=== PATIENT | male | born 1935 ===

== ENCOUNTER 2016-11-24 06:49 | Emergency (ER) | payer MEDICARE, BC ==
[2016-07-02 11:16] VITALS: BMI 23.2
[2016-11-24 10:14] LABS: GRAN # 4.33 (1.4-6.5); GRAN % 73.9 % (50.0-68.0); HEMOGLOBIN 12.7 gm/dL (14.0-18.0); LYMPH # 1.1 (1.2-3.4); LYMPH % 19.3 % (22.0-35.0); MEAN CORPUSCULAR HEMOGLOBIN 33.9 pg (25.0-35.0); MEAN CORPUSCULAR HGB CONC 35.3 g/dl (31.0-37.0); MEAN PLATELET VOLUME 10.7 fl (7.0-11.0); MONO # 0.4 (0.1-0.6); MONO % 6.8 % (1.0-6.0); PLATELET COUNT 159 10^3/uL (120.0-450.0); RBC 3.75 10^6/uL (3.5-6.1); RED CELL DISTRIBUTION WIDTH 13.8 % (11.5-14.5); WHITE BLOOD COUNT 5.9 10^3/ul (4.5-11.0)
[2016-11-24 10:18] LABS: VENOUS BLOOD GAS BASE EXCESS -0.7 mmol/L (0.0-2.0); VENOUS BLOOD GAS PO2 109 mm/Hg (30-55); VENOUS BLOOD PH 7.43 (7.32-7.43)
[2016-11-24 10:22] LABS: BLOOD UREA NITROGEN 23 mg/dL (7-21); GFR AFRICAN-AMERICAN > 60; GFR NON-AFRICAN AMERICAN > 60
[2016-11-24 10:23] LABS: ALB/GLOB RATIO 1.1 (1.1-1.8); ALBUMIN 4.4 g/dL (3.0-4.8); AST/SGOT 21 U/L (15-59)
[2016-11-24 10:24] LABS: ALT/SGPT 19 U/L (7-56)
--- NOTE | 2016-11-24 16:10 | CT ---
PROCEDURE: CT Abdomen and Pelvis without intravenous contrast HISTORY: CONSTIPATION - R/O OBSTRUCTION COMPARISON: None. TECHNIQUE: Technique. Contrast Dose: None Radiation dose: Total exam DLP = 404 mGy-cm. This CT exam was performed using one or more of the following dose reduction techniques: Automated exposure control, adjustment of the mA and/or kV according to patient size, and/or use of iterative reconstruction technique. FINDINGS: LOWER THORAX: Unrema peripheral pulmonary fibrosis remains mild. No pleural or pericardial effusion. Small hiatal hernia noted. LIVER: There were 2 tiny lucencies seen at the left lobe liver too small to characterize. No gross ductal dilatation identified. GALLBLADDER AND BILE DUCTS: Gallbladder appears distended but is otherwise unremarkable. PANCREAS: Unremarkable. No gross lesion or ductal dilatation. SPLEEN: Unremarkable. ADRENALS: Unremarkable. No mass. KIDNEYS AND URETERS: Tiny lucency seen the upper poles bilateral kidneys which are probably unchanged but difficult to characterize due to lack of intravenous contrast. No definite obstructive uropathy bilateral. Limited streaky perinephric changes are unchanged in the interval. VASCULATURE: Unremarkable. No aortic aneurysm. BOWEL: Prior segmental resection seen the region of the cecum/ascending colon. The lack of oral contrast limits evaluation of the bowel. No obstruction. No gross mural thickening. Mildly prominent fecal loading is seen throughout the large bowel. APPENDIX: Remains nonfocal and retrocecal. Normal appendix. PERITONEUM: Unremarkable. No free fluid. No free air. LYMPH NODES: Unremarkable. No enlarged lymph nodes. BLADDER: Unremarkable. REPRODUCTIVE: Enlarged prostate gland again evident. BONES: Multilevel thoracolumbar spondylosis. OTHER FINDINGS: None. IMPRESSION: 1. Lack of contrast agents limits evaluation of large bowel, however, no bowel obstruction measure edema, ascites or free intraperitoneal gas identified. Prominent fecal loading seen throughout the colon suggesting constipation. 2. Prior 7 or section at the cecum or ascending colon is noted. Normal-appearing appendix. 3. Enlarged prostate gland. 4. Lesser additional findings as discussed above. Yes
== END 2016-11-24 07:01 | disposition home or self-care (01) ==
LOC: ED 06:49
DX: K59.00 Constipation, unspecified (principal)

== ENCOUNTER 2017-11-19 13:26 | Emergency (ER) | payer MEDICARE, BC ==
[2017-11-19 13:26] VITALS: BMI 24.5
[2017-11-19] MEDS ORDERED: Sodium Chloride 0.9% 1,000 ML IV STA (14:38)
--- NOTE | 2017-11-19 14:43 | ED PDOC ---
Arrival/HPI - General Chief Complaint: Weakness/Neurological Deficit Time Seen by Provider: 11/19/17 13:27 Historian: Patient, Family - History of Present Illness Narrative History of Present Illness (Text): 82 year old male with a history of colon cancer stage IV being treated with chemotherapy, hypothyroidism, COPD, iron deficiency anemia, and HTN presents with lethargy per family and self-reported nonbloody diarrhea. Daughter reports that he started to act more lethargic one week ago. He reports back pain due to chronic arthritis. He has been short of breath when walking only a few steps. He denies wheezing. He denies headache, dizziness, chest pain, nausea, vomiting, dysuria, hematuria, numbness/tingling, and weakness. 11/19/17 19:12 Past Medical History - Provider Review Nursing Documentation Reviewed: Yes - Infectious Disease Hx of Infectious Diseases: None - Tetanus Immunization Tetanus Immunization: Unknown - Past Medical History Past Medical History: No Previous - Cardiac Hx Cardiac Disorders: Yes Hx Hypertension: Yes - Pulmonary Hx Respiratory Disorders: Yes Hx Chronic Obstructive Pulmonary Disease (COPD): Yes - Neurological Hx Neurological Disorder: No Hx Paralysis: No - HEENT Hx HEENT Disorder: No - Renal Hx Renal Disorder: No - Endocrine/Metabolic Hx Endocrine Disorders: No - Hematological/Oncological Hx Blood Disorders: Yes Hx Blood Transfusions: Yes Hx Blood Transfusion Reaction: No Hx Cancer: Yes (colon and prostate) - Integumentary Hx Dermatological Disorder: No - Musculoskeletal/Rheumatological Hx Falls: No - Gastrointestinal Hx Gastrointestinal Disorders: Yes Other/Comment: COLON CA - Genitourinary/Gynecological Hx Genitourinary Disorders: Yes Hx Reproductive Disorders: Yes - Psychiatric Hx Psychophysiologic Disorder: No Hx Emotional Abuse: No Hx Physical Abuse: No Hx Substance Use: No - Past Surgical History Past Surgical History: No Previous - Surgical History Other/Comment: colostomy/and reversal - Anesthesia Hx Anesthesia Reactions: No Hx Malignant Hyperthermia: No - Suicidal Assessment Feels Threatened In Home Enviroment: No Family/Social History - Physician Review Nursing Documentation Reviewed: Yes Family/Social History: Unknown Family HX Smoking Status: Former Smoker Hx Alcohol Use: Yes (GLASS OF WINE OR BEER/DAY) Hx Substance Use: No Hx Substance Use Treatment: No Allergies/Home Meds Allergies/Adverse Reactions: Allergies No Known Allergies Allergy (Verified 11/19/17 13:27) Home Medications: Home Meds Medication Instructions Recorded Confirmed Acyclovir [Zovirax] 400 mg PO BID 03/04/17 03/07/17 Oxycodone HCl/Acetaminophen 1 each PO TID PRN 03/04/17 03/07/17 [Percocet 10-325 mg Tablet] Ergocalciferol (Vitamin D2) 1.25 mg PO QWK 03/07/17 03/07/17 [Vitamin D2] Morphine [Morphine Extended 15 mg PO BID 03/07/17 03/07/17 Release Tab] Review of Systems - Physician Review All systems were reviewed & negative as marked: Yes - Review of Systems Constitutional: Fatigue Eyes: Normal ENT: Normal Respiratory: SOB (with exertion) Cardiovascular: Normal Gastrointestinal: Diarrhea. absent: Abdominal Pain, Constipation, Nausea, Vomiting Genitourinary Male: Normal Musculoskeletal: Normal Skin: Normal Neurological: Normal Physical Exam Vital Signs Reviewed: Yes Vital Signs Temp Pulse Resp BP Pulse Ox 11/19/17 19:00 98 F 85 19 124/52 L 99 11/19/17 16:15 98 F 75 19 110/75 99 11/19/17 13:29 97.8 F 98 H 20 109/76 96 Temperature: Afebrile Blood Pressure: Normal Pulse: Regular Respiratory Rate: Normal Appearance: Positive for: Well-Appearing Pain Distress: None Mental Status: Positive for: Alert and Oriented X 3 - Systems Exam Head: Present: Atraumatic, Normocephalic Pupils: Present: PERRL Extroacular Muscles: Present: EOMI Conjunctiva: Present: Normal Nose (External): Present: Atraumatic Respiratory/Chest: Present: Clear to Auscultation Cardiovascular: Present: Regular Rate and Rhythm Abdomen: Present: Normal Bowel Sounds. No: Tenderness, Distention, Mass/ Organomegaly Upper Extremity: Present: Normal Inspection, Normal ROM, NORMAL PULSES, Capillary Refill < 2s Lower Extremity: Present: Normal Inspection, NORMAL PULSES, Normal ROM, Capillary Refill < 2 s Neurological: Present: GCS=15, CN II-XII Intact, Speech Normal (slight tic with speech), Motor Func Grossly Intact, Normal Sensory Function Skin: Present: Warm, Dry, Normal Color Psychiatric: Present: Alert. No: Oriented x 3 (only can state his name. he does know where he is or what the year is), Normal Insight Medical Decision Making ED Course and Treatment: Impression: 82 year old male with a history of colon cancer stage IV being treated with chemotherapy, hypothyroidism, COPD, iron deficiency anemia, and HTN presents with lethargy per family and self-reported nonbloody diarrhea. Assessment: diarrhea due to colitis vs. dysfunction of colon due to shortened colon from sigmoidectomy vs. gastroenteritis Plan: IV fluids 0.9% NS for rehydration. CBC and CMP to rule out GI bleed and electrolyte imbalances from diarrhea. Chest X ray to rule out infectious process of potential altered mental status. Urine analysis/culture to rule out infectious process for potential altered mental status. Head CT ordered to evaluate trauma or intracranial hemorrhage as reason for potential altered mental status. Abdominal CT to evaluate abdomen for potential causes of diarrhea such as colitis. Rectal Exam for evaluating colon for blood. 11/19/17 14:52 CBC, CMP, Urinanalysis unremarkable except for Hgb of 12.8. We can exclude anemia and electrolyte abnormalities as changes from diarrhea. 11/19/17 15:[address] [facility] pharmacy called for medicine reconciliation, which found that he was on ciprofloaxicin and flagyl in July for unspecified infection. Patient has a risk for C. Difficile infection and stool toxin will be done to rule out C. Difficile. 11/19/17 18:58 Rectal exam was guaiac negative. 11/19/17 19:03 Patient wants to leave Leaving Against Medical Advice (AMA): The patient is choosing to leave against medical advice. I have personally explained to the patient that choosing to do so may result in permanent bodily harm or . I have discussed at great length that without further evaluation and monitoring there may be unforeseen circumstances and/or deterioration causing permanent bodily harm or as a result of their choice. The patient is alert, but not oriented. However, both patient and family both want to leave. The patient continues to wish to leave against medical advice. In light of the patients decision to leave against medical advice, follow-up has been arranged and the patient is aware of the importance to following up as instructed. The patient has been advised that they should return to the emergency room immediately if they change their mind at any time, or if their condition begins to change or worsen in any way. - Lab Interpretations Lab Results: 11/19/17 14:50 11/19/17 14:50 Lab Results 11/19/17 14:50: Sodium 143, Potassium 3.7, Chloride 101, Carbon Dioxide 25, Anion Gap 20, BUN 47 H, Creatinine 1.3, Est GFR ( Amer) > 60, Est GFR ( Non-Af Amer) 53, Random Glucose 97, Calcium 9.9, Total Bilirubin 0.5, AST 27, ALT 18, Alkaline Phosphatase 66, Total Protein 8.8 H, Albumin 4.6, Globulin 4.2 , Albumin/Globulin Ratio 1.1 11/19/17 14:50: Urine Color Yellow, Urine Appearance Clear, Urine pH 6.5, Ur Specific [place] 1.010, Urine Protein Negative, Urine Glucose (UA) Negative, Urine Ketones Negative, Urine Blood Negative, Urine Nitrate Negative, Urine Bilirubin Negative, Urine Urobilinogen 0.2, Ur Leukocyte Esterase Negative 11/19/17 14:50: WBC 6.3 D, RBC 3.75, Hgb 12.8 L D, Hct 34.9 L, MCV 93.1 D, MCH 34.1, MCHC 36.7, RDW 14.5, Plt Count 188, MPV 10.7, Gran % 61.0, Lymph % ( Auto) 27.4, [place] % (Auto) 9.3 H, Eos % (Auto) 2.1, Baso % (Auto) 0.2, Gran # 3.86, Lymph # (Auto) 1.7, [place] # (Auto) 0.6, Eos # (Auto) 0.1, Baso # (Auto) 0.01 I have reviewed the lab results: Yes - RAD Interpretation Radiology Orders: 11/19/17 14:36 HEAD W/O CONTRAST [CT] Stat CHEST PORTABLE [RAD] Stat 11/19/17 14:37 ABD PELVIS PO & IV CONTRAST [CT] Stat Construction Trades Teacher: ED Physician, Radiologist - EKG Interpretation Interpreted by ED Physician: Yes - Medication Orders Current Medication Orders: Discontinued Medications Sodium Chloride (Sodium Chloride 0.9%) 1,000 mls @ 999 mls/hr IV .Q1H1M STA Stop: 11/19/17 15:38 Last Admin: 11/19/17 14:50 Dose: 999 mls/hr eMAR Start Stop Document 11/19/17 14:50 GMI (Rec: 11/19/17 14:52 GMI [id number]) Intravenous Solution Start Date 11/19/17 Start Time 14:52 End Date 11/19/17 End time 16:07 Total Infusion Time 75 - PA / BRIEF WRITER / Resident Statement /DO has reviewed & agrees with the documentation as recorded. MD/DO has examined the patient and agrees with the treatment plan. Disposition/Present on Arrival - Present on Arrival Any Indicators Present on Arrival: No History of DVT/PE: No History of Uncontrolled Diabetes: No Urinary Catheter: No History of Decub. Ulcer: No History Surgical Site Infection Following: None - Disposition Have Diagnosis and Disposition been Completed?: Yes Diagnosis: Diarrhea Disposition: AGAINST MEDICAL ADVICE Disposition Time: 19:08 Condition: UNKNOWN Referrals: Jorge Alberto GRAHAM,Jeovanny Capps MD [Primary Care Provider] - Follow up with primary Forms: [employer] (Macanese)
[2017-11-19] MEDS ORDERED: Iohexol 240 (50 ml) ONE (14:51)
[2017-11-19 15:05] LABS: BASO # 0.01 K/mm3 (0.0-2.0); BASO % 0.2 % (0.0-3.0); EOS # 0.1 (0.0-0.7); EOS % 2.1 % (1.5-5.0); GRAN # 3.86 (1.4-6.5); HEMOGLOBIN 12.8 g/dL (14.0-18.0); LYMPH # 1.7 (1.2-3.4); LYMPH % 27.4 % (22.0-35.0); MEAN CELL VOLUME 93.1 fl (80.0-105.0); MEAN CORPUSCULAR HEMOGLOBIN 34.1 pg (25.0-35.0); MEAN CORPUSCULAR HGB CONC 36.7 g/dl (31.0-37.0); MEAN PLATELET VOLUME 10.7 fl (7.0-11.0); MONO # 0.6 (0.1-0.6); MONO % 9.3 % (1.0-6.0); RBC 3.75 10^6/uL (3.5-6.1); RED CELL DISTRIBUTION WIDTH 14.5 % (11.5-14.5); WHITE BLOOD COUNT 6.3 10^3/ul (4.5-11.0)
[2017-11-19 15:07] LABS: PH,URINE 6.5 (4.7-8.0); URINE BILIRUBIN NEGATIVE (NEGATIVE); URINE BLOOD NEGATIVE (NEGATIVE); URINE GLUCOSE (UA) NEGATIVE (NEGATIVE); URINE LEUKOCYTE ESTERASE NEGATIVE Leu/uL (NEGATIVE); URINE PROTEIN NEGATIVE mg/dL (<30 mg/dL); URINE UROBILINOGEN 0.2 E.U./dL (<1 E.U./dL)
[2017-11-19 15:10] LABS: ALB/GLOB RATIO 1.1 (1.1-1.8); ALBUMIN 4.6 g/dL (3.0-4.8); ALT/SGPT 18 U/L (7-56); AST/SGOT 27 U/L (17-59); BLOOD UREA NITROGEN 47 mg/dL (7-21); CALCIUM 9.9 mg/dL (8.4-10.5); GFR AFRICAN-AMERICAN > 60; GFR NON-AFRICAN AMERICAN 53
[2017-11-19 15:13] LABS: URINE APPEARANCE CLEAR (CLEAR); URINE COLOR YELLOW (YELLOW)
[2017-11-19 16:16] VITALS: RESP 19; TEMP 98
--- NOTE | 2017-11-19 16:33 | RAD ---
Date of service: 11/19/2017 HISTORY: r/o infiltrate COMPARISON: 03/04/2017 FINDINGS: LUNGS: The lungs are well inflated and clear. PLEURA: No significant pleural effusion identified, no pneumothorax apparent. CARDIOVASCULAR: Normal. OSSEOUS STRUCTURES: No significant abnormalities. VISUALIZED UPPER ABDOMEN: Normal. OTHER FINDINGS: None. IMPRESSION: No active pulmonary disease.
[2017-11-19 19:00] VITALS: PULSE 85
[2017-11-19 19:50] VITALS: BP 123/65; O2SAT 98
--- NOTE | 2017-11-20 08:25 | CT ---
Date of service: 11/19/2017 PROCEDURE: CT HEAD WITHOUT CONTRAST. HISTORY: possible altered mental status COMPARISON: None available. TECHNIQUE: Axial computed tomography images were obtained through the head/brain without intravenous contrast. Radiation dose: Total exam DLP = 995.22 mGy-cm. This CT exam was performed using one or more of the following dose reduction techniques: Automated exposure control, adjustment of the mA and/or kV according to patient size, and/or use of iterative reconstruction technique. FINDINGS: HEMORRHAGE: No intracranial hemorrhage. BRAIN: Vasquez-white matter differentiation is preserved. There is no mass, mass effect or abnormal extra-axial fluid collection. There is no territorial infarction. The midline sagittal structures are normal. VENTRICLES: There is mild age-related global parenchymal volume loss and proportionate enlargement of the ventricles and cortical sulci. CALVARIUM: The skull base and calvarium are normal. PARANASAL SINUSES: There is a retention cyst/polyp in the right maxillary alveolus. The remaining included paranasal sinuses are clear. MASTOID AIR CELLS: Predominantly clear. There is cerumen in bilateral external auditory canals. OTHER FINDINGS: None. IMPRESSION: No acute intracranial abnormality. Mild age-related global parenchymal volume loss. A preliminary report was provided by [employer] services.
--- NOTE | 2017-11-20 09:02 | CT ---
Date of service: 11/19/2017 PROCEDURE: CT Abdomen and Pelvis with contrast HISTORY: diarrhea and history of colon cancer COMPARISON: 11/24/2016. TECHNIQUE: Contrast dose: 100 mL Omnipaque 350 Radiation dose: Total exam DLP = 522.56 mGy-cm. This CT exam was performed using one or more of the following dose reduction techniques: Automated exposure control, adjustment of the mA and/or kV according to patient size, and/or use of iterative reconstruction technique. FINDINGS: LOWER THORAX: There is subsegmental atelectasis in the lung bases. Small pericardial effusion. LIVER: The liver is normal in size and there is homogeneous enhancement. There are stable small low-attenuation lesions in the left hepatic lobe too small to characterize by CT criteria. No gross lesion or ductal dilatation. GALLBLADDER AND BILE DUCTS: The gallbladder is contracted. PANCREAS: Mild diffuse atrophy with homogeneous enhancement. No gross lesion or ductal dilatation. SPLEEN: Normal in size and appearance. ADRENALS: No discrete nodule. KIDNEYS AND URETERS: Normal in size with homogeneous enhancement. No hydronephrosis. No solid mass. VASCULATURE: Advanced atherosclerotic aortoiliac calcifications. There is ectasia of the infrarenal aorta. No aortic aneurysm. BOWEL: The small bowel loops are normal in caliber. There is scattered colonic diverticulosis without CT evidence for acute diverticulitis. No bowel dilatation or obstruction. APPENDIX: Normal appendix. PERITONEUM: Unremarkable. No free fluid. No free air. LYMPH NODES: Unremarkable. No enlarged lymph nodes. BLADDER: Decompressed. REPRODUCTIVE: Mild enlargement of the prostate gland. BONES: No acute fracture. Within normal limits for the patient's age. OTHER FINDINGS: There is apparent circumferential mural thickening in the distal esophagus. IMPRESSION: 1. No acute abdominal or pelvic abnormality. 2. Apparent circumferential mural thickening in the distal esophagus is nonspecific and could be related to underdistention however nonspecific esophagitis cannot be excluded. 3. Scattered colonic diverticulosis. No acute diverticulitis. A preliminary report was provided by [employer].
--- NOTE | 2017-11-20 12:26 | CARD ---
APPROVED REPORT Date of service: 11/19/2017 EKG Measurement Heart [id number] <Conclusion> Normal sinus rhythm ST abnormality, possible digitalis effect Abnormal ECG
== END 2017-11-19 19:50 | disposition left against medical advice (07) ==
LOC: ED 13:26
DX: R19.7 Diarrhea, unspecified (principal); I10 Essential (primary) hypertension; E03.9 Hypothyroidism, unspecified; Z85.038 Personal history of other malignant neoplasm of large intestine; Z87.891 Personal history of nicotine dependence
CPT/HCPCS: 70450; 71045; 74177; 80053; 81003; 85025; 87086; 93005; 96360; 99285; J7030; Q9966; Q9967

== ENCOUNTER 2017-11-25 10:54 | Emergency (ER) | payer MEDICARE, BC ==
[2017-11-25 10:54] VITALS: BMI 24.5
[2017-11-25] MEDS ORDERED: Sodium Chloride 0.9% 1,000 ML IV STA (11:26)
--- NOTE | 2017-11-25 11:31 | ED PDOC ---
Arrival/HPI - General Chief Complaint: Weakness/Neurological Deficit Time Seen by Provider: 11/25/17 11:23 Historian: Patient, Family - History of Present Illness Narrative History of Present Illness (Text): 11/25/17 11:20 82 year old male whose PMH includes COPD, hypertension, and colon CA, who presents to the emergency department accompanied by family, complaining of diarrhea since 6 days. Daughter reports patient was seen 6 days ago but patient refused to stay and be admitted for further evaluation. Daughter states the diarrhea has not stopped and patient has lack of appetite. She noted the last chemotherapy was about 2 weeks ago. Patient denies chest pain, shortness of breath, headache, abdominal pain, vomiting, dysuria, or other complaints. PMD Dr. Jorge Alberto Huizar Time/Duration: < week Symptom Onset: Sudden Symptom Course: Worsening Context: Home Past Medical History - Provider Review Nursing Documentation Reviewed: Yes - Infectious Disease Hx of Infectious Diseases: None - Tetanus Immunization Tetanus Immunization: Unknown - Past Medical History Past Medical History: No Previous - Cardiac Hx Cardiac Disorders: Yes Hx Hypertension: Yes - Pulmonary Hx Respiratory Disorders: Yes Hx Chronic Obstructive Pulmonary Disease (COPD): Yes - Neurological Hx Neurological Disorder: No Hx Paralysis: No - HEENT Hx HEENT Disorder: No - Renal Hx Renal Disorder: No - Endocrine/Metabolic Hx Endocrine Disorders: No - Hematological/Oncological Hx Blood Disorders: Yes Hx Blood Transfusions: Yes Hx Blood Transfusion Reaction: No Hx Cancer: Yes (colon and prostate) - Integumentary Hx Dermatological Disorder: No - Musculoskeletal/Rheumatological Hx Falls: No - Gastrointestinal Hx Gastrointestinal Disorders: Yes Other/Comment: COLON CA - Genitourinary/Gynecological Hx Genitourinary Disorders: Yes Hx Reproductive Disorders: Yes - Psychiatric Hx Psychophysiologic Disorder: No Hx Emotional Abuse: No Hx Physical Abuse: No Hx Substance Use: No - Past Surgical History Past Surgical History: No Previous - Surgical History Other/Comment: colostomy/and reversal - Anesthesia Hx Anesthesia Reactions: No Hx Malignant Hyperthermia: No - Suicidal Assessment Feels Threatened In Home Enviroment: No Family/Social History - Physician Review Nursing Documentation Reviewed: Yes Family/Social History: Unknown Family HX Smoking Status: Former Smoker Hx Alcohol Use: Yes (GLASS OF WINE OR BEER/DAY) Hx Substance Use: No Hx Substance Use Treatment: No Allergies/Home Meds Allergies/Adverse Reactions: Allergies No Known Allergies Allergy (Verified 11/25/17 11:05) Home Medications: Home Meds Medication Instructions Recorded Confirmed No Known Home Med 11/25/17 11/25/17 Review of Systems - Review of Systems Constitutional: absent: Fevers ENT: absent: Sinus Congestion Respiratory: absent: SOB Cardiovascular: absent: Chest Pain Gastrointestinal: Diarrhea, Appetite Changes. absent: Abdominal Pain, Vomiting Genitourinary Male: absent: Dysuria Musculoskeletal: absent: Back Pain Skin: absent: Rash Neurological: absent: Headache Endocrine: absent: Diaphoresis Physical Exam Vital Signs Reviewed: Yes Vital Signs Temp Pulse Resp BP Pulse Ox 11/25/17 13:15 97.6 F 67 18 94/58 L 99 11/25/17 11:57 67 17 125/78 100 11/25/17 11:06 97.8 F 69 20 102/57 L 100 Temperature: Afebrile Blood Pressure: Normal Pulse: Regular Respiratory Rate: Normal Appearance: Positive for: Well-Appearing, Non-Toxic, Comfortable Pain Distress: None Mental Status: Positive for: Alert and Oriented X 3 - Systems Exam Head: Present: Atraumatic, Normocephalic Pupils: Present: PERRL Extroacular Muscles: Present: EOMI Conjunctiva: Present: Normal Respiratory/Chest: Present: Clear to Auscultation, Tachypneic. No: Good Air Exchange, Respiratory Distress, Accessory Muscle Use Cardiovascular: Present: Regular Rate and Rhythm, Normal S1, S2. No: Murmurs Abdomen: Present: Normal Bowel Sounds. No: Tenderness, Distention, Peritoneal Signs, Rebound, Guarding Neurological: Present: GCS=15, CN II-XII Intact, Speech Normal Skin: Present: Warm, Dry, Normal Color. No: Rashes Psychiatric: Present: Alert, Oriented x 3, Normal Insight, Normal Concentration Medical Decision Making ED Course and Treatment: 11/25/17 Impression: 82 year old male who is tachypneic complaining of diarrhea and lack of appetite since 6 days. Plan: -- Labs -- IV NS -- Reassess and disposition Progress Notes: Patient received 1L NS bolus 11/25/17 13:00 I discussed results with patient and offered patient admission, but he does not want to stay. On reevaluation the patient feels better and is in no acute distress. I have discussed the results and plan with the patient, who expresses understanding. Patient given the opportunity to ask question, all questions were answered and there is agreement with the plan to discharge the patient home. Patient was instructed to follow up with physician/clinic in 1-2 days or return if symptoms persist/worsen or new concerning symptoms arise. - Lab Interpretations Lab Results: 11/25/17 11:34 11/25/17 11:34 Lab Results 11/25/17 11:34: Sodium 139, Potassium 3.6, Chloride 102, Carbon Dioxide 23, Anion Gap 18, BUN 27 H, Creatinine 1.2, Est GFR ( Amer) > 60, Est GFR ( Non-Af Amer) 58, Random Glucose 106, Calcium 9.4 11/25/17 11:34: WBC 5.9, RBC 3.63, Hgb 12.2 L, Hct 33.7 L, MCV 92.8, MCH 33.6, MCHC 36.2, RDW 14.4, Plt Count 187, MPV 10.0, Gran % 69.7 H, Lymph % (Auto) 17.1 L, [place] % (Auto) 11.0 H, Eos % (Auto) 1.9, Baso % (Auto) 0.3, Gran # 4.10, Lymph # (Auto) 1.0 L, [place] # (Auto) 0.7 H, Eos # (Auto) 0.1, Baso # (Auto) 0.02 I have reviewed the lab results: Yes - Medication Orders Current Medication Orders: Discontinued Medications Sodium Chloride (Sodium Chloride 0.9%) 1,000 mls @ 999 mls/hr IV .Q1H1M STA Stop: 11/25/17 12:26 Last Admin: 11/25/17 11:39 Dose: 999 mls/hr eMAR Start Stop Document 11/25/17 11:39 MR (Rec: 11/25/17 11:39 MR [id number]) Intravenous Solution Start Date 11/25/17 Start Time 11:39 End Date 11/25/17 End time 12:39 Total Infusion Time 60 - Scribe Statement The provider has reviewed the documentation as recorded by the Kaiden Lamar Provider Scribe Attestation: All medical record entries made by the Scribe were at my direction and personally dictated by me. I have reviewed the chart and agree that the record accurately reflects my personal performance of the history, physical exam, medical decision making, and the department course for this patient. I have also personally directed, reviewed, and agree with the discharge instructions and disposition. Disposition/Present on Arrival - Present on Arrival Any Indicators Present on Arrival: No History of DVT/PE: No History of Uncontrolled Diabetes: No Urinary Catheter: No History of Decub. Ulcer: No History Surgical Site Infection Following: None - Disposition Have Diagnosis and Disposition been Completed?: Yes Diagnosis: Diarrhea, Loss of appetite Disposition: HOME/ ROUTINE Disposition Time: 13:19 Condition: STABLE Discharge Instructions (ExitCare): Diarrhea in Adolescents and Adults Referrals: Amber Huizar MD [Primary Care Provider] - Follow up with primary Forms: [employer] (Belgian)
[2017-11-25 11:42] LABS: BASO # 0.02 K/mm3 (0.0-2.0); BASO % 0.3 % (0.0-3.0); EOS # 0.1 (0.0-0.7); EOS % 1.9 % (1.5-5.0); GRAN # 4.1 (1.4-6.5); GRAN % 69.7 % (50.0-68.0); HEMOGLOBIN 12.2 g/dL (14.0-18.0); LYMPH % 17.1 % (22.0-35.0); MEAN CELL VOLUME 92.8 fl (80.0-105.0); MEAN CORPUSCULAR HEMOGLOBIN 33.6 pg (25.0-35.0); MEAN CORPUSCULAR HGB CONC 36.2 g/dl (31.0-37.0); MONO # 0.7 (0.1-0.6); RBC 3.63 10^6/uL (3.5-6.1); RED CELL DISTRIBUTION WIDTH 14.4 % (11.5-14.5); WHITE BLOOD COUNT 5.9 10^3/ul (4.5-11.0)
[2017-11-25 11:56] LABS: BLOOD UREA NITROGEN 27 mg/dL (7-21); GFR AFRICAN-AMERICAN > 60; GFR NON-AFRICAN AMERICAN 58
[2017-11-25 11:57] LABS: CALCIUM 9.4 mg/dL (8.4-10.5)
[2017-11-25 13:11] VITALS: PULSE 67
[2017-11-25 13:15] VITALS: BP 94/58; RESP 18; TEMP 97.6; O2SAT 99
== END 2017-11-25 13:19 | disposition home or self-care (01) ==
LOC: ED 10:54
DX: R19.7 Diarrhea, unspecified (principal); R63.0 Anorexia
CPT/HCPCS: 80048; 85025; 96360; 99285; J7030

== ENCOUNTER 2018-06-05 05:10 | Outpatient (CLI) | payer MEDICARE, BC | END 2018-06-05 05:11 | disposition home or self-care (01) | LOC: PET-BROA 05:10 ==